=== PATIENT | male | born 1965 | race Caucasian/White ===

== ENCOUNTER → 2017-11-04 | Outpatient (CLI) | payer BC ==
--- NOTE | 2017-11-04 16:57 | CT ---
EXAMINATION TYPE: CT sinus wo con DATE OF EXAM: 11/04/2017 COMPARISON: NONE HISTORY: 52-year-old male, pain, Chronic sinusitis, left worse than right CT DLP: 642.5 mGycm Automated exposure control for dose reduction was used. TECHNIQUE: Noncontrast axial views of the paranasal sinuses were obtained. Coronal reconstructions pe rformed. FINDINGS: Trace mucosal thickening left maxillary sinus. The frontal, ethmoid, and sphenoid sinuses are clear. There is no air-fluid level. Reactive yolie- osteogenesis is not seen. There is no destruction of the osseous lindsay of the paranasal sinuses. The osteomeatal complexes are patent. Leftward nasal septal deviation. Incidental conchal bullosa right middle turbinate. The imaged brain and orbits are normal in appearance. Mastoid air cells incompletely visualized. There is prominent cerumen in the left external auditory c anal noted. Reformatted images confirm above findings. IMPRESSION: 1. Mild chronic left maxillary sinus disease characterized by trace mucosal thickening. The remainder of the paranasal sinuses are clear. 2. Leftward nasal septal deviation. 3. Prominent cerumen left external auditory canal.
== END | disposition home or self-care (01) ==
LOC: RADCTMAIN 16:26
PROVIDERS: ATTEND Otolaryngology
DX: J32.0 Chronic maxillary sinusitis (principal); J34.2 Deviated nasal septum
CPT/HCPCS: 70486

== ENCOUNTER 2021-01-02 07:50 | Day surgery (SDC) | payer BC ==
[2020-12-31 12:34] VITALS: BMI 25.7
[2021-01-02 08:12] VITALS: TEMP 98
[2021-01-02] MEDS ORDERED: SODIUM CHLORIDE 0.9% 500 ML 500 ML IV ONE (08:12)
[2021-01-02] MEDS ORDERED: fentaNYL (PF) 50 MCG/ML 2 ML AMP ONE (09:17)
[2021-01-02] MEDS: BENZOCAINE SPRAY 1 CAN MUCOUS MEM ONE ×2 (09:21→09:23)
[2021-01-02 09:37] VITALS: RESP 16
[2021-01-02] MEDS ORDERED: fentaNYL (PF) 50 MCG/ML 2 ML AMP IVP ONE (09:50)
[2021-01-02] MEDS ORDERED: MIDAZOLAM 2 MG/2 ML VIAL IVP ONE ×2 (09:50→09:52)
[2021-01-02 11:33] VITALS: BP 116/82; PULSE 74
--- NOTE | 2021-01-02 20:38 | ECHOT ---
TRANSESOPHAGEAL ECHOCARDIOGRAM TRANSESOPHAGEAL ECHO: INDICATION: Shortness of breath in a patient with a moderate mitral regurgitation. PROCEDURE NOTE: After obtaining informed consent, transesophageal echocardiogram is performed in left lateral position using an Omni plane probe. Local and IV sedation were obtained using Xylocaine spray, and fentanyl. The patient tolerated the procedure well without any obvious immediate complications. The patient received moderate conscious sedation. Total sedation time was 10 minutes. FINDINGS: 1. Mitral valve is anatomically normal. There is mild to moderate central mitral regurgitation noted. 2. Aortic valve is free of stenosis or regurgitation. 3. There is mild tricuspid regurgitation. 4. Left atrium, right atrium, right ventricle seen within normal limits. 5. Left ventricle has normal size and systolic function. 6. Aorta appears within normal limits. 7. Interatrial septum: There is no evidence of [id number] shunt by color-flow Doppler or [id number] shunt by agitated saline contrast study. CONCLUSIONS: 1. Left ventricular systolic function is normal. 2. Mild to moderate mitral regurgitation noted. MMODL / IJN: [id number] /
== END 2021-01-02 11:10 | disposition home or self-care (01) ==
LOC: CATHCVL 07:50
PROVIDERS: ATTEND Internal Medicine Cardiovascular Disease
DX: I08.1 Rheumatic disorders of both mitral and tricuspid valves (principal); Z20.822 Contact with and (suspected) exposure to COVID-19; E78.5 Hyperlipidemia, unspecified; I10 Essential (primary) hypertension
CPT/HCPCS: 93312; 93320; 93325; 87635; J2250; J3010

== ENCOUNTER → 2021-01-30 | Outpatient (CLI) | payer BC ==
--- NOTE | 2021-01-30 11:08 | US ---
EXAMINATION TYPE: US venous doppler duplex LE DATE OF EXAM: 01/30/2021 10:58 AM COMPARISON: NONE CLINICAL HISTORY: R20.0 PARESTHESIA. Pain SIDE PERFORMED: Bilateral TECHNIQUE: The lower extremity deep venous system is examined utilizing real time linear array sonog elvia with graded compression, doppler sonography and color-flow sonography. VESSELS IMAGED: Common Femoral Vein Deep Femoral Vein Greater Saphenous Vein * Femoral Vein Popliteal Vein Small Saphenous Vein * Proximal Calf Veins (* superficial vessels) Right Leg: Negative for DVT Left Leg: Negative for DVT IMPRESSION: 1. No evidence of deep venous thrombosis in the bilateral lower extremity veins.
== END | disposition home or self-care (01) ==
LOC: RADUSWWP 10:35
PROVIDERS: ATTEND Internal Medicine
DX: G58.9 Mononeuropathy, unspecified (principal); R20.2 Paresthesia of skin
CPT/HCPCS: 93970

== ENCOUNTER → 2023-12-22 | Outpatient (CLI) | payer BC ==
--- NOTE | 2023-12-22 13:53 | CT ---
EXAMINATION TYPE: CT chest w con DATE OF EXAM: 12/22/2023 COMPARISON: 12/27/2012 HISTORY: Other non specific abnormal findings of lung field, HX PNE, lung infection CT DLP: 399.70 mGycm Automated exposure control for dose reduction was used. TECHNIQUE: CT scan of the chest is performed with IV Contrast, patient injected with 100 mL of Isovue 300. MIP Images are created on CT scanner and reviewed. 3D reconstructed images are created on an independent workstation and reviewed. FINDINGS: There are a few scattered sub-5 mm pulmonary nodules. There is no abnormal airspace consolidative density or abnormal interstitial density. There is no pleural effusion, pleural thickening or pneumothorax. The great vessels chest and heart are normal. There is no mediastinal, hilar or axillary adenopathy. Limited scanning through the upper abdomen reveals no gross abnormality. No focal osseous lesions are seen. IMPRESSION: 1. Scattered benign-appearing lung nodules. 2. No acute cardiopulmonary disease.
== END | disposition home or self-care (01) ==
LOC: RADCTMAIN 10:56
PROVIDERS: ATTEND Internal Medicine Critical Care Medicine
DX: R91.8 Other nonspecific abnormal finding of lung field (principal)
CPT/HCPCS: 71260; Q9967